=== PATIENT | female | born 1935 | race Caucasian/White ===

== ENCOUNTER 2019-08-25 09:17 | Observation (INO) | payer MEDICARE, MEDICAID ==
[~2019-08-25] VITALS: Ht 149.9 cm; Wt 54.2 kg
[~2019-08-25 09:17] MED LIST: DIPYRIDAMOLE25 MG PO
[2019-08-25 10:25] LABS: MEAN CELL VOLUME 89.8 fL CALC (80.0-100.0); MEAN CORPUSCULAR HGB 27.7 pG CALC (26.0-32.0); MEAN CORPUSCULAR HGB CONC 30.8 g/L CALC (32.0-36.0); NEUT# 4.67 thou/uL (2.00-7.15); RED BLOOD COUNT 4.12 mill/uL (4.20-5.60); RED CELL DISTRI WIDTH 15.9 % (11.5-15.5)
[2019-08-25] MEDS ORDERED: LIPITOR40 M1 PO (10:34)
[2019-08-25] MEDS ORDERED: MULTI VIT PO (10:35)
[2019-08-25] MEDS ORDERED: CLARITIN10 M2 PO (10:35)
[2019-08-25] MEDS ORDERED: ASPIRIN81 MG PO (10:36)
[2019-08-25] MEDS ORDERED: ZOFRAN4 M1 PO (10:37)
[2019-08-25] MEDS ORDERED: ATENOLOL25 MG PO (10:37)
[2019-08-25] MEDS ORDERED: COMPAZINE10 MG PO (10:39)
[2019-08-25] MEDS ORDERED: CLARISPRAY50 MCG/ACT (10:40)
[2019-08-25] MEDS ORDERED: PROTONIX40 M2 PO (10:41)
[2019-08-25 10:43] LABS: ACT PARTIAL THROMBO TIME 30.8 SECONDS (20.0-32.5); PROTHROMBIN TIME 10.8 SECONDS (9.0-12.5)
[2019-08-25 10:45] LABS: CREATININE 1.6 mg/dL (0.5-1.0)
[2019-08-25 10:54] LABS: HEMOGLOBIN 11.4 g/dl (12.0-16.0)
[2019-08-25 10:56] LABS: ALBUMIN 2.7 g/dL (3.2-5.0); BILIRUBIN, TOTAL 0.6 mg/dL (0.0-1.4); TOTAL PROTEIN 5.4 g/dL (6.3-8.2)
[2019-08-25 11:22] LABS: POTASSIUM 6.4 mmol/l (3.5-5.1)
[2019-08-25 13:05] VITALS: BP 136/73
[2019-08-25 13:15] VITALS: BP 136/73
[2019-08-25 20:00] VITALS: BP 86/46
[2019-08-26] VITALS: BP 83/51
[2019-08-26 00:15] VITALS: BP 89/51
[2019-08-26 04:00] VITALS: BP 92/56
[2019-08-26 08:00] VITALS: BP 100/57
[2019-08-26 11:16] LABS: CREATININE 1.4 mg/dL (0.5-1.0)
[2019-08-26 11:20] LABS: POTASSIUM 5.4 mmol/l (3.5-5.1)
[2019-08-26 12:00] VITALS: BP 95/53
== END 2019-08-26 14:31 | disposition hospice, home (50) ==
LOC: ED 09:17 → ED-I 11:29 → ED 11:44 → ICU 11:45
PROVIDERS: ADMIT Internal Medicine; ATTEND Internal Medicine
PROC: 0W9G3ZZ Drainage of Peritoneal Cavity, Percutaneous Approach (ICD-10-PCS; principal; 2019-08-25)
DX: E87.5 Hyperkalemia (principal); E87.1 Hypo-osmolality and hyponatremia; I95.81 Postprocedural hypotension; C56.9 Malignant neoplasm of unspecified ovary; C78.7 Secondary malignant neoplasm of liver and intrahepatic bile duct; R18.0 Malignant ascites; C78.6 Secondary malignant neoplasm of retroperitoneum and peritoneum; I12.9 Hypertensive chronic kidney disease with stage 1 through stage 4 chronic kidney disease, or unspecified chronic kidney disease; N18.3 Chronic kidney disease, stage 3 (moderate); I25.10 Atherosclerotic heart disease of native coronary artery without angina pectoris; Z51.5 Encounter for palliative care